=== PATIENT | male | born 1990 | race Caucasian/White ===

== ENCOUNTER 2021-07-04 06:21 | Emergency (ER) | payer OTHER ==
[~2021-07-04] VITALS: Ht 172.7 cm; Wt 77.1 kg
[2021-07-04 06:31] VITALS: BP 181/110
--- NOTE | 2021-07-04 06:31 | NUR ---
TO [facility], [facility] [employer] FOR PREBOOK
[2021-07-04] MEDS ORDERED: IBUPROFEN 600 MG TAB PO ONE (06:45)
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
[2021-07-04 08:05] VITALS: BP 181/110
--- NOTE | 2021-07-04 08:05 | NUR ---
PATIENT BIB [employer]. PATIENT EXAMINED BY DR. AMADOR. PATIENT MEDICALLY CLEARED AND RELEASED IN CUSTODY IN STABLE CONDITION. ORIGINAL PRE-BOOK FORM GIVEN TO OFFICER [employer].
== END 2021-07-04 08:05 ==
LOC: MED 06:21
DX: S80.212A Abrasion, left knee, initial encounter (principal); S80.211A Abrasion, right knee, initial encounter; Z02.89 Encounter for other administrative examinations; X58.XXXA Exposure to other specified factors, initial encounter; Y93.89 Activity, other specified; Y92.89 Other specified places as the place of occurrence of the external cause; Y99.8 Other external cause status
CPT/HCPCS: 73562; 99283